=== PATIENT | female | born 1990 | race Hispanic/Latino ===

== ENCOUNTER → 2019-06-21 | Emergency (ER) | payer OTHER ==
[~2019-06-21] VITALS: Ht 157.5 cm; Wt 60.8 kg
[~2019-06-21] MED LIST: IBUPROFEN 400 MG TAB PO NR
--- OUTSIDE RECORDS SUMMARY | 2019-06-21 14:25 | XMS REPORT | Summary of Care ---
Author Author Karen Pascual Organization Unknown Address Unknown Phone Unavailable Care Team Providers Care Injection Molding Supervisor Name Role Phone DRY KILN WORKER, ROOM2 Unavailable Unavailable MEME STAFFORD MD Unavailable Unavailable JACKIE BROWN Unavailable Unavailable JESS HORTON MD Unavailable Unavailable Functional Status Name Dates Details Functional status health issues are not documented Status: Name Dates Details Cognitive status health issues are not documented Status: Problems Name Dates Details Active medical history not documented Status: Medications Name Dates Details Medications not documented Allergies and Adverse Reactions Name Dates Details Allergy history not documented Status: Procedures Procedure Dates Details Procedures not documented Immunization Name Dates Details Immunizations not documented Social History Name Dates Details Unknown if ever smoked Vital Signs Date Test Result Details No Known Vitals to report Results Date Description Value Details Results not documented Plan of Care Name Dates Details Planned Observations Planned Goals not documented Instructions Name Dates Details Instructions not documented Encounters Appointment; DRY KILN WORKER, ROOM2 Encounter Diagnosis: Problem not documented On: 29-Jan-2017 9:15 Appointment; DRY KILN WORKER, ROOM1 Encounter Diagnosis: Problem not documented On: 02-Mar-2017 13:00 Appointment; DRY KILN WORKER, ROOM2 Encounter Diagnosis: Problem not documented On: 30-Jul-2018 13:30 Appointment; DRY KILN WORKER, ROOM2 Encounter Diagnosis: Problem not documented On: 08-Nov-2018 13:00
--- OUTSIDE RECORDS SUMMARY | 2019-06-21 14:25 | XMS REPORT ---
Author Author [facility] Address Unknown Phone Unavailable Care Team Providers Care Registrar Assistant Name Role Phone Unavailable Unavailable Problems This patient has no known problems. Allergies, Adverse Reactions, Alerts This patient has no known allergies or adverse reactions. Medications This patient has no known medications. Encounters Start Date/Time End Date/Time Encounter Type Admission Type Attending [facility] Care Department Encounter ID 2019-02-04 14:50:00 2019-02-04 14:50:00 Emergency E [facility] [id number] 2018-11-19 11:45:00 2018-11-19 20:19:00 Inpatient E [facility] [id number] 2017-06-28 00:00:00 2017-06-29 00:00:00 Outpatient [facility] [id number]
== END | disposition home or self-care (01) ==
LOC: ER 14:23
DX: J02.0 Streptococcal pharyngitis (principal)
CPT/HCPCS: 99282